=== PATIENT | female | born 1985 | race Caucasian/White ===

== ENCOUNTER 2017-05-26 15:49 | Emergency (ER) | payer OTHER ==
[~2017-05-26] VITALS: Ht 157.5 cm; Wt 146.0 kg
[2017-05-26 15:55] VITALS: BP 122/82; PULSE 69; RESP 16; O2SAT 100
[2017-05-26] MEDS ORDERED: PREN1TAB87 PO (15:59)
[2017-05-26] MEDS ORDERED: CYAN1TAB42 PO (15:59)
[2017-05-26] MEDS ORDERED: FERR325T39 PO (15:59)
--- NOTE | 2017-05-26 16:10 | ED.REPORT ---
HPI-Syncope Date of Service May 26, 2017 ED Provider: Jaret Astudillo MD Pt is a 22 week 31 year old female with a history of anemia who presents to the ED c/o syncope onset 1 hour prior to arrival. She c/o associated LOC, lightheadedness, malaise, nasal pain, head pain, back pain ( onset 2 weeks ago), vomiting (3x), and nausea. The pt reports that she was sitting on the toilet while having a bowel movement when she fell and hit her face on the ground. She reports that she lost consciousness for 3-5 min, and there was no witness. Per pt, her has had no complications with the exception of a placental tear that resulted in vaginal bleeding. Nursing Notes Stated Complaint: 5 MON. , FELL, DIZZY Chief Complaint: Neuro Symptoms/ Deficits Nursing Notes Reviewed: Yes ([employer], [facility] reconciled) Allergies: Coded Allergies: Sulfa (Sulfonamide Antibiotics) (Verified Allergy, Intermediate, hives, ) Scheduled Cyanocobalamin/Folic Acid (Vitamin Z16-Bumdo Acid Tablet) 1 Each Tablet 1 EACH PO DAILY Ferrous Sulfate (Iron) 325 Mg Tablet 325 MG PO DAILY Vit W-Ca,Fe,FA(<1 mg) ( Vitamins) 1 Each Tablet 1 EACH PO DAILY General Time Seen by Provider: 16:40 Chief Complaint Lost consciousness Hx Obtained From: Patient Arrived By: Walk-in Onset Occurred: 1 - 4 hours ago Symptom Duration: 1 - 15 minutes Location: : Head Quality: Painful Severity: Current: Moderate Severity: Maximum: Moderate Recent Healthcare: Recent doctor visit Similar Sx Previous: No Past Medical History Past Medical History (22wks as of 05/26/17) Anemia Reports: Asthma Past Surgical History Denies Smoking History Unknown if Ever Smoker Social History Other Social History: Good social support Ambulatory Status Independent Review of Systems + Nasal pain + Head pain Constitutional: Denies: Fever GI: Reports: Nausea, Vomiting Musculoskeletal: Reports: Back pain Neurologic: Reports: Change LOC, Lightheaded, Syncope Complete sys rev & neg: except as marked. Physical Exam Initial Vital Signs Vital Signs (First) Date Time Temp Pulse Resp B/P Pulse Ox O2 Delivery O2 Flow Rate FiO2 05/26/17 15:55 36.5 69 16 122/82 100 Room Air Initial VS: Reviewed, Vital signs normal Neck: Supple, Full range of motion Upper Extremities: Vascular intact, Neuro intact Skin: Warm, Dry, No cyanosis Psychiatric: Mood/affect normal, Behavior normal General/Constitutional: Awake, Alert, Cooperative Appropriate. Respiratory / Chest: Atraumatic, Breath sounds NL, Breath sounds = bilat Cardiovascular: Heart rate NL, Regular rhythm, Heart sounds NL, No murmurs Lower Extremity / Pelvis / MS: Atraumatic, Full range of motion No edema or findings of DVT on clinical exam. Neurologic: Oriented X3, Speech NL, No motor deficits, No sensory deficits, CN II - XII intact HEAD: No septal hematoma. I don't appreciate any visible facial trauma. NOSE: No displaced nasal fracture. Abdomen: Atraumatic, Soft, Non-tender Gravid. Interpretation & Diagnostics US OB PLACENTA EVALUATION LIMITED - IMPRESSION: 1. Single living intrauterine demonstrated. 2. No evidence of placental abruption. Dictated by: Omar Shi M.D. on 05/26/2017 at 20:24 Lab Results Interpretation Result Diagram: 05/26/17 1630 05/26/17 1630 Test 05/26/17 16:30 White Blood Count 12.0th/mm3 (3.8-10.1) Red Blood Count 3.98mil/mm3 (3.90-5.20) Hemoglobin 10.9g/dL (12.0-15.6) Hematocrit 32.9% (35.0-46.0) Mean Corpuscular Volume 82.7fL (81-100) Mean Corpuscular Hemoglobin 27.4pg (27.0-35.0) Mean Corpuscular Hemoglobin Concent 33.1% (32.0-37.0) Red Cell Distribution Width 19.4% (12.3-15.4) Platelet Count 253bil/L (150-400) Neutrophils (%) (Auto) 72.8% (40-74) Lymphocytes (%) (Auto) 17.1% (14-46) Monocytes (%) (Auto) 8.3% (4-12) Eosinophils (%) (Auto) 1.2% (0-5) Basophils (%) (Auto) 0.2% (0-3) Sodium Level 133mEq/L (134-144) Potassium Level 3.7mEq/L (3.5-5.2) Chloride Level 98mEq/L (97-108) Carbon Dioxide Level 19mmol/L (18-29) Blood Urea Nitrogen 10mg/dL (6-20) Creatinine 0.53mg/dL (0.57-1.00) Estimat Glomerular Filtration Rate 190mL/min (>59) Glucose Level 91mg/dL (60-99) Calcium Level 9.3mg/dL (8.5-10.1) Total Bilirubin 0.2mg/dL (0.0-1.2) Aspartate Amino Transf (AST/SGOT) 14U/L (0-50) Alanine Aminotransferase (ALT/SGPT) 7U/L (0-32) Alkaline Phosphatase 61U/L (25-150) Total Protein 7.0g/dL (6.4-8.4) Albumin 3.9g/dL (3.4-5.0) Lab Results Interpretation: CC nonspecific leukocytosis, normal CMP normal ECG Interpretation ECG Interpretation: No abnormalities. No signs of pre-excitation syndrome No qt. Time: 16:15 Interpreted by: ED physician Normal ECG Interpretation: Normal sinus rhythm (with a rate of 48) Re-Eval/Medical Decision Med Decision/Clinical Course Physical pleasant 31-year-old female 22 weeks who presents with an episode of syncope. She has had a little bit of GI discomfort, episode of diarrhea, is having cramping and went to the bathroom, and had a syncopal episode while on the toilet. She had no chest pain, no shortness breath, no pleuritic discomfort, no leg swelling no no history previous history of DVT or PE. She did hit her face, but denies headache,. She had some nausea preceding event, and had some ongoing nausea following the event. In the ED she clinically appears well, she has normal vitals, she is not Tachycardic, tachypneic, hypoxic, hypotensive. She is gravid, but is nontender. She has no findings of peritonitis on exam. DVT PE. Patient's main concern is she wants a checked out. EKG is normal, no tachydysrhythmia or findings of previous sensation syndrome or Brugada syndrome were evident. Blood work is normal. Ultrasound feels normal , normal flaring or terms, no signs of abruption. The patient was observed. I am not finding evidence of PE. I suspect this is a vasovagal syncope in the setting of some sort of mild GI illness given her symptoms. I am not finding evidence of acute surgical abdomen or major infectious process. Patient's been able to eat and drink, serial exams are normal, discomfort discharged home. Routine precautions reviewed. Patient is discharged in good condition. Source of Hx: Old records Re-Evaluation/Progress #1: Time of Eval: 19:03 Patient Status: Condition improved Re-Evaluation/Progress Note: Pt rechecked. She reports feeling better. All questions addressed. Re-Evaluation/Progress #2: Time of Eval: 19:54 Re-Evaluation/Progress Note: Pt rechecked. Informed pt of plan for discharge. Pt understands and agrees with plan for discharge. F/U instructions and RTER warnings given. All questions addressed. Differential Diagnosis: Positive: Vasovagal syncope, Negative: Abdominal aortic aneurysm, Acute coronary syndrome, Alcohol abuse, Anemia, Cerebrovascular accident, Electrolyte disorder, Intracranial bleed, Malingering, Pneumothorax, Prolonged QT syndrome, Pulmonary embolus, Sepsis, Subarachnoid hemorrhage, Thoracic aortic dissect, Transient ischemic attack Counseled Regarding: Diagnosis, Lab results, Need for follow-up, When/why to return to ED Discharge & Departure Impression: Primary Impression: Vasovagal syncope Additional Impression: Weeks of gestation: 22 weeks Qualified Code: Z3A.22 - 22 weeks gestation of Disposition: Home Discharge Condition All VS Reviewed: Yes Condition: Stable Patient Instructions: Syncope (ED) Additional Instructions: You came to the ED today due to fainting, this is termed "syncope". Your evaluation included EKG, ultrasound, labs, and physical exam. Your tests and ultrasound were normal.. You most likely fainted due to what is called a "vasovagal response", which is common in and is more frequent with abdominal symptoms (such as cramping or diarrhea). It is possible you may have a mild gasroenteritis, commonly referred "stomach bug", causing your diarrhea and vomiting. (But you did not have any markers of a more severe illness on your evaluation). Drink lots of water. Wash your hands frequently. Sit down if you get light- headed or dizzy. You can use ice and/or Tylenol if your nose remains painful. Call Dr. Slater's office and schedule a follow-up visit. Return to the ED if you experience new or worsening symptoms, including fainting again, funny heartbeat, or difficulty breathing. Referrals: Magdalena Slater MD (PCP) Scribe Attestation Portions of this note were transcribed by Lela Montes De Oca. I, Dr. Astudillo personally performed the history, physical exam and medical decision-making; I reviewed and confirmed the accuracy of the information in the transcribed note. Signed by: Jayy Savage, 05/26/17 and 18:40. copies to: Magdalena Slater MD, Matthew F MD May 26, 2017 16:10 Lela Breaux May 26, 2017 16:53
[2017-05-26 16:41] LABS: BASOPHILS % (AUTO) 0.2 % (0-3); EOSINOPHILS % (AUTO) 1.2 % (0-5); MONOCYTES % (AUTO) 8.3 % (4-12); Mean Corpuscular Hemoglobin 27.4 pg (27.0-35.0); Mean Corpuscular Volume 82.7 fL (81-100); NEUTROPHILS % (AUTO) 72.8 % (40-74); Platelet Count 253 bil/L (150-400)
[2017-05-26] MEDS ORDERED: 0.9% Sodium Chloride 1,000 ML IV ONE (16:50)
[2017-05-26 18:19] VITALS: BP 106/70; PULSE 76; RESP 14; O2SAT 94
--- NOTE | 2017-05-26 20:27 | DRSVH ---
PROCEDURE: US OB PLACENTA EVALUATION LIMITED INDICATIONS: 31 year-old female status post fall. OUTSIDE/PRIOR DATING DATA: Last menstrual period (LMP): 12/21/16. LMP-based estimated date of delivery (ANDRE): 09/27/17. First dating scan (date and location): 02/03/17. Estimated date of delivery (ANDRE) from first dating scan: 09/27/17. TECHNIQUE: Real-time scanning was performed of the fetus, with image documentation and biometric measurements. COMPARISON: None. FINDINGS: General: A single living intrauterine gestation is present. Presentation: Vertex Placenta: Placental position is posterior, without previa. No florentin-placental collections to suggest abruption. 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 IMPRESSION: 1. Single living intrauterine demonstrated. 2. No evidence of placental abruption. Dictated by: Omar Shi M.D. on 05/26/2017 at 20:24 Approved by: Omar Shi M.D. on 05/26/2017 at 20:25
[2017-05-26 20:37] VITALS: BP 110/65; PULSE 87; RESP 17; O2SAT 98
== END 2017-05-26 20:30 | disposition home or self-care (01) ==
LOC: SED 15:49
DX: O26.892 Other specified pregnancy related conditions, second trimester (principal); O21.0 Mild hyperemesis gravidarum; R55 Syncope and collapse; R42 Dizziness and giddiness; J45.909 Unspecified asthma, uncomplicated; Z3A.22 22 weeks gestation of pregnancy; Z88.2 Allergy status to sulfonamides
CPT/HCPCS: 36415; 76815; 80053; 85025; 86850; 93005; 96360; 99285; J7030